=== PATIENT | female | born 1945 | race Caucasian/White ===

== ENCOUNTER → 2016-10-31 | Day surgery (SDC) | payer MEDICARE, OTHER ==
[~2016-10-31] VITALS: Ht 152.4 cm; Wt 59.6 kg
[2016-10-31 07:31] LABS: HCT 41.5 % (37.0-47.0); HGB 13.8 g/dl (12.5-16.0); MCH 28.7 pg (25.0-31.0); MCHC 33.3 g/dL (32.0-36.0); MCV 86.3 fL (78.0-100.0); MPV 9.9 fL (6.0-9.5); RBC 4.81 M/uL (4.20-5.40); RDW 13.3 % (11.5-14.0); WBC 5.6 K/uL (4.0-10.5)
[2016-10-31 07:45] LABS: ALBUMIN 4.9 g/dL (3.4-4.8); BILIRUBIN - TOTAL 0.6 mg/dL (0.1-1.0); CREATININE 1.1 mg/dL (0.5-1.0); GLOBULIN (CALCULATION) 3.8 g/dL (2.2-4.2); POTASSIUM 3.4 mmol/L (3.5-5.1); TOTAL PROTEIN 8.7 g/dL (6.4-8.3)
== END | disposition home or self-care (01) ==
LOC: FAS 06:35
PROVIDERS: Surgery
DX: Z12.11 Encounter for screening for malignant neoplasm of colon (principal); K57.30 Diverticulosis of large intestine without perforation or abscess without bleeding; Z80.0 Family history of malignant neoplasm of digestive organs; I10 Essential (primary) hypertension; Z90.710 Acquired absence of both cervix and uterus; Z91.048 Other nonmedicinal substance allergy status
CPT/HCPCS: 36415; 80053; J2704